=== PATIENT | male | born 1940 | race Caucasian/White ===

== ENCOUNTER → 2018-09-24 | Day surgery (SDC) | payer MEDICARE ==
[2018-09-04 14:51] LABS: BASOPHILS % 0.4 % (0.0-1.0); EOSINOPHILS # (AUTO) 0.3 (0.0-0.4); EOSINOPHILS % 4.1 % (0.0-6.0); HEMATOCRIT 41.2 % (38.2-49.6); HEMOGLOBIN 13.9 g/dL (14.0-18.0); MEAN CORPUSCULAR HEMOGLOBIN 29.8 pg (28-32); MEAN CORPUSCULAR HGB CONC 33.7 g/dL (31-35); MEAN CORPUSCULAR VOLUME 88.4 fL (81-99); MONOCYTES # (AUTO) 0.6 (0.2-0.8); MONOCYTES % 8.8 % (4.4-11.3); NEUTROPHILS % 57.6 % (38.7-80.0); PLATELET COUNT 133 x10e3/uL (140-360); RED BLOOD COUNT 4.66 x10e6/uL (4.3-5.7); RED CELL DISTRIBUTION WIDTH 13.5 % (11.7-14.4)
[~2018-09-24] MED LIST: FENTANYL CITRATE/PF 100MCG/2 ML INJ ONE; HYOSCYAMINE 0.125 MG TAB ONE; LIDOCAINE HCL 2% LOCAL INJ 5 ML SDV VIAL INJ ONE; METOPROLOL SUCC25 MG; MIDAZOLAM HCL 2 MG/2 ML VIAL ONE; OMEPRAZOLE PO; PROPOFOL IV EMULSION 10 MG/ML 50 ML VIAL ONE; SIMVASTATIN20 MG PO; TERAZOSIN HCL5 MG PO
[2018-09-24 12:35] VITALS: BP 148/85
--- NOTE | 2018-09-24 12:40 | Operative Report ---
DATE OF PROCEDURE: 09/24/2018 SURGEON: Gamaliel Reyes MD PROCEDURES: Colonoscopy with polypectomy. INDICATION FOR COLONOSCOPY: Surveillance colonoscopy, personal history of colon polyps. MEDICATIONS: The patient was done under MAC, please see anesthesiologist's note. PROCEDURE IN DETAIL: With the patient in left lateral decubitus position, a flexible fiberoptic Olympus colonoscope was inserted into the rectum with ease and advanced all the way to the cecum. An approximately 6 mm sessile polyp was removed per cold snare polypectomy from the cecum. The scope was then withdrawn slowly and an additional approximately 1 cm sessile polyp was removed per snare electrocautery from the ascending colon and site was hemoclipped. An additional polyp was removed per the cold biopsy forceps. Diverticular disease was pretty much noted scattered throughout, but probably more prominent in the left colon. One polyp was snared, one polyp was hot biopsied from the transverse colon. Two polyps were hot biopsied from the descending colon. Seven polyps were hot biopsied from the sigmoid colon and 5 polyps were hot biopsied from the rectum. A minute nodule was noted at the dentate line and that was biopsied. The scope was then retroflexed into the distal rectum and small internal hemorrhoids were noted, none of which was actively bleeding. The scope was then straightened out, it was subsequently withdrawn, and the patient tolerated the procedure well. IMPRESSION: 1. Cecal polyp removed per cold snare polypectomy. 2. Ascending colon polyp approximately 1 cm in size, sessile, snared and site hemoclipped. 3. Minute polyp, ascending colon, removed per cold biopsy forceps. 4. Diverticulosis. 5. Transverse colon polyps x2, one snared and one hot biopsied. 6. Descending colon polyps x2, hot biopsied. 7. Sigmoid colon polyps x5, hot biopsied. 8. Rectal polyps x5, hot biopsied. 9. Minute nodule, dentate line, biopsied. 10. Internal hemorrhoids, none actively bleeding. A total of 19 polyps were removed. PLAN: Follow up histology. Initiate high-fiber, low-fat diet. Initiate high-fiber supplement. The patient will need a followup colonoscopy in one year. Gamaliel Reyes MD [facility] – [place] /[id number] cc: Gus Garcia MD
== END | disposition home or self-care (01) ==
LOC: OR 08:16
PROVIDERS: ATTEND Internal Medicine Gastroenterology
DX: D12.2 Benign neoplasm of ascending colon (principal); D12.0 Benign neoplasm of cecum; D12.4 Benign neoplasm of descending colon; D12.3 Benign neoplasm of transverse colon; K21.9 Gastro-esophageal reflux disease without esophagitis; K59.00 Constipation, unspecified; K58.9 Irritable bowel syndrome, unspecified; F95.9 Tic disorder, unspecified; Z95.2 Presence of prosthetic heart valve; I25.2 Old myocardial infarction; K63.5 Polyp of colon; K57.30 Diverticulosis of large intestine without perforation or abscess without bleeding; K62.1 Rectal polyp; K64.8 Other hemorrhoids; Z01.810 Encounter for preprocedural cardiovascular examination; Z01.812 Encounter for preprocedural laboratory examination
CPT/HCPCS: 36415; 45380; 45384; 45385; 85025; 88305; 93005; J2001; J2250; J2704; J3010; 45378